=== PATIENT | female | born 1930 | race Caucasian/White ===

== ENCOUNTER 2017-04-28 14:42 | Emergency (ER) | payer OTHER ==
[~2017-04-28] VITALS: Ht 152.4 cm; Wt 56.7 kg
[~2017-04-28 14:42] MED LIST: BENA10TA4 PO; BENA20TA PO; GLIM2TAB PO; METO25TE PO; OMEP20EC4 PO; RAME8TAB16 PO
[2017-04-28 14:54] VITALS: BP 167/82
[2017-04-28] MEDS ORDERED: ONDANSETRON 4 MG/2 ML VIAL IVP ONE (15:05)
[2017-04-28] MEDS ORDERED: MORPHINE SULFATE 4 MG/ML SYR IVP ONE (15:05)
[2017-04-28] MEDS ORDERED: NACL 0.9% 1,000 ML IV ONE (15:05)
--- NOTE | 2017-04-28 15:47 | NUR ---
blood and urine collected and handed to lab
[2017-04-28 16:06] LABS: ANION GAP 12.7 (8-16); BASOPHILS # (AUTO) 0.2 K/uL (0.00-0.22); CARBON DIOXIDE 28.1 mmol/L (21-32); CHLORIDE 101 mmol/L (98-107); CREATININE 0.8 mg/dL (0.6-1.3); EOSINOPHILS # (AUTO) 0.1 K/uL (0-0.4); GLUCOSE 202 mg/dL (74-106); HEMATOCRIT 39.8 % (36-48); HEMOGLOBIN 13.5 g/dL (12.0-16.0); LYMPHOCYTES # (AUTO) 1.2 K/uL (2.5-16.5); MEAN CORPUSCULAR HEMOGLOBIN 30 pg (27-31); MEAN CORPUSCULAR HGB CONC 34 g/dL (33-37); MEAN CORPUSCULAR VOLUME 89 fL (80-94); MONOCYTES # (AUTO) 0.4 K/uL (0.8-1.0); NEUTROPHILS # (AUTO) 2.7 K/uL (1.8-7.7); PLATELET COUNT (AUTO) 169 K/uL (140-450); POTASSIUM 3.8 mmol/L (3.5-5.1); RED BLOOD CELL COUNT(AUTO) 4.47 MIL/uL (4.20-5.40); RED CELL DISTRIBUTION WIDTH 12.2 % (11.6-13.7); SODIUM SERUM 138 mmol/L (136-145); UREA NITROGEN, BLOOD 15 mg/dL (7-18); WHITE BLOOD COUNT (AUTO) 4.6 K/uL (4.8-10.8)
[2017-04-28 16:13] LABS: ALBUMIN 3.8 g/dL (3.4-5.0); ASPARTATE AMINOTRANSFERASE 12 U/L (15-37); LIPASE 104 U/L (73-393); TOTAL BILIRUBIN 0.5 mg/dL (0.0-1.0)
[2017-04-28 16:15] LABS: BILIRUBIN,URINE NEGATIVE (NEGATIVE); BLOOD, URINE NEGATIVE (NEGATIVE); LEUKOCYTE ESTERASE ,URINE 1+ (NEGATIVE); NITRITE, URINE NEGATIVE (NEGATIVE); PH,URINE 5.5 (5.0-9.0); UGLUCOSE NEGATIVE (NEGATIVE)
--- NOTE | 2017-04-28 16:17 | NUR ---
pt admits no pain or nausea at this time---ambulatory to restroom with daughter
[2017-04-28 16:18] LABS: APPEARANCE,URINE HAZY (CLEAR); COLOR,URINE STRAW (YELLOW)
[2017-04-28 16:25] LABS: RBC,URINE NONE SEEN /HPF (0-5)
--- NOTE | 2017-04-28 17:24 | NUR ---
ATE 100% MEAL--CONTINUES TO DENIE N/V OR PAIN
[2017-04-28 17:36] VITALS: BP 155/70
--- NOTE | 2017-04-28 17:36 | NUR ---
Patient discharged with v/s stable. Written and verbal after care instructions given and explained. Patient alert, oriented and verbalized understanding of instructions. Ambulatory with steady gait. All questions addressed prior to discharge. ID band removed. Patient advised to follow up with PMD. Rx of MAALOX/ MACROBID given. Patient educated on indication of medication including possible reaction and side effects. Opportunity to ask questions provided and answered.
== END 2017-04-28 17:36 | disposition home or self-care (01) ==
LOC: MED 14:42
DX: N39.0 Urinary tract infection, site not specified (principal); E11.9 Type 2 diabetes mellitus without complications; I10 Essential (primary) hypertension; Z90.49 Acquired absence of other specified parts of digestive tract; Z88.0 Allergy status to penicillin
CPT/HCPCS: 36415; 74176; 80053; 81001; 82948; 83690; 83880; 84484; 85025; 87086; 87186; 93005; 96361; 96374; 96375; 99285; J2270; J2405; J7030

== ENCOUNTER 2021-08-21 09:48 | Emergency (ER) | payer OTHER ==
[~2021-08-21] VITALS: Ht 162.6 cm; Wt 59.0 kg
[~2021-08-21 09:48] MED LIST changes: -BENA10TA4 PO; +BENA10TA59 PO; +OMEP20EC11 PO; -OMEP20EC4 PO
[2021-08-21 09:55] VITALS: BP 134/78
[2021-08-21] MEDS ORDERED: KETOROLAC 60 MG/2 ML VIAL IM ONE (10:05)
--- NOTE | 2021-08-21 10:16 | NUR ---
PATIENT W/C ASSISTED TO BED 4.
--- NOTE | 2021-08-21 10:18 | NUR ---
Pt in bed #4 coming from home accompanied by daughter in law. Pt arrived in wheelchair unable to walk due to c/o left hip pain after falling this morning trying to get out of bed. Pt is A&Ox4. Pt states she normally uses a walker at home but currently states she is unable to ambulate. Rates pain 10/10 and is constant. Skin intact. Bruising noted on left hip. VSS. Bed in lowest position. No chest pain and no sob. Denies n/v. Hx of HTN, DM, Hypothyroidism, GERD, Anxiety, and Dementia. Allergic to Penicillins.
--- NOTE | 2021-08-21 10:37 | NUR ---
Pt to radiology via [facility] accompanied by radiology transcriptionist.
--- NOTE | 2021-08-21 11:08 | NUR ---
Pt return from radiology.
[2021-08-21] MEDS ORDERED: MORPHINE SULFATE 4 MG/ML SYR IVP ONE ×4 (11:25→20:25)
--- NOTE | 2021-08-21 11:34 | NUR ---
#22g IV placed on left hand using aseptic technique. No infiltration noted. Blood return and drawn. Flushed with 10cc NS. Pt has no c/o.
--- NOTE | 2021-08-21 11:37 | NUR ---
Dr. Ayala at bedside examining pt.
--- NOTE | 2021-08-21 11:58 | NUR ---
Personal Belonging List Completed.
--- NOTE | 2021-08-21 11:59 | NUR ---
EKG being done at bedside.
--- NOTE | 2021-08-21 11:59 | NUR ---
Blood and covid swab done and sent to lab.
[2021-08-21 12:23] LABS: ALBUMIN 3.7 g/dL (3.4-5.0); ASPARTATE AMINOTRANSFERASE 16 U/L (15-37); CARBON DIOXIDE 23.7 mmol/L (21-32); CHLORIDE 102 mmol/L (98-107); CREATININE 0.9 mg/dL (0.6-1.3); GLUCOSE 184 mg/dL (74-106); HEMOGLOBIN 12.9 g/dL (12.0-16.0); POTASSIUM 3.7 mmol/L (3.5-5.1); RED CELL DISTRIBUTION WIDTH 13.6 % (11.6-13.7); SODIUM SERUM 138 mmol/L (136-145); TOTAL BILIRUBIN 0.4 mg/dL (0.0-1.0); UREA NITROGEN, BLOOD 19 mg/dL (7-18)
[2021-08-21 12:31] LABS: BASOPHILS % (AUTO) 0.6 % (0.0-2.0); EOSINOPHILS # (AUTO) 0.1 K/uL (0-0.4); EOSINOPHILS % (AUTO) 0.8 % (0.0-4.0); HEMATOCRIT 37.6 % (36-48); LYMPHOCYTES # (AUTO) 0.8 K/uL (2.5-16.5); LYMPHOCYTES % (AUTO) 11.8 % (20.5-51.1); MEAN CORPUSCULAR HEMOGLOBIN 31 pg (27-31); MEAN CORPUSCULAR HGB CONC 34 g/dL (33-37); MEAN CORPUSCULAR VOLUME 89.9 fL (80-94); MONOCYTES # (AUTO) 0.5 K/uL (0.8-1.0); MONOCYTES % (AUTO) 6.9 % (1.7-9.3); NEUTROPHILS # (AUTO) 5.7 K/uL (1.8-7.7); NEUTROPHILS % (AUTO) 79.9 % (42.2-75.2); PLATELET COUNT (AUTO) 161 K/uL (140-450); RED BLOOD CELL COUNT(AUTO) 4.19 MIL/uL (4.20-5.40); WHITE BLOOD COUNT (AUTO) 7.1 K/uL (4.8-10.8)
[2021-08-21] MEDS ORDERED: METF-1139 PO (12:58)
[2021-08-21] MEDS ORDERED: TRAZ-343 PO (12:58)
[2021-08-21] MEDS ORDERED: MELA10TA6 PO (12:58)
[2021-08-21] MEDS ORDERED: CARV3.12 PO (12:58)
[2021-08-21] MEDS ORDERED: ERTU15TA PO (12:58)
[2021-08-21] MEDS ORDERED: SYN.05 PO (12:58)
[2021-08-21] MEDS ORDERED: OMEP-124 PO (12:58)
--- NOTE | 2021-08-21 12:59 | NUR ---
Medication reconciliation completed by information provided by pt.
--- NOTE | 2021-08-21 13:33 | NUR ---
#16F Plaza cath placed using sterile technique. Pt has no c/o.
--- NOTE | 2021-08-21 14:47 | NUR ---
Bakari reece in [facility] - 08/21/21 at 1451 by [email or web address] Chest X-Ray being done at bedside.
--- NOTE | 2021-08-21 17:38 | NUR ---
Pt c/o pain returning and rates it 8/[address] Lea notified.
--- NOTE | 2021-08-21 20:05 | NUR ---
SPOKE WITH DEVELOPMENT TEAM LEAD WHO WILL ARRANGE TRANSPORTATION FOR TRANSFER. PT IS RESTING COMFORTABLY, DENIES NEED FOR PAIN MEDICATION AT THIS TIME
[2021-08-21] MEDS ORDERED: MORPHINE SULFATE 4 MG/ML SYR ONE (20:28)
[2021-08-21 21:00] VITALS: BP 144/83
--- NOTE | 2021-08-21 21:45 | NUR ---
AMBULANCE TRANSPORT AT BEDSIDE
--- NOTE | 2021-08-21 21:50 | NUR ---
report called to VIKA Peng at [facility]
--- NOTE | 2021-08-21 22:00 | NUR ---
[facility] FOR TRANSPORT/ TRANSFER TO [facility]
--- NOTE | 2021-08-21 22:11 | NUR ---
PT TAKEN BY AMBULANCE TRANSPORT
--- NOTE | 2021-08-21 22:11 | NUR ---
TRANSFERED VIA [facility]. CHART COPIED AND SENT. CD IN PACKET
== END 2021-08-21 22:11 | disposition short-term general hospital (02) ==
LOC: MED 09:48
DX: S72.142A Displaced intertrochanteric fracture of left femur, initial encounter for closed fracture (principal); F03.90 Unspecified dementia, unspecified severity, without behavioral disturbance, psychotic disturbance, mood disturbance, and anxiety; K21.9 Gastro-esophageal reflux disease without esophagitis; I10 Essential (primary) hypertension; E07.9 Disorder of thyroid, unspecified; Z79.84 Long term (current) use of oral hypoglycemic drugs; Z88.0 Allergy status to penicillin; Z79.899 Other long term (current) drug therapy; Z90.49 Acquired absence of other specified parts of digestive tract; Z98.890 Other specified postprocedural states; W19.XXXA Unspecified fall, initial encounter; Y93.89 Activity, other specified; Y92.89 Other specified places as the place of occurrence of the external cause; Y99.8 Other external cause status
CPT/HCPCS: 36415; 71045; 73502; 80053; 83880; 84484; 85025; 87426; 93005; 96372; 96374; 96376; 99285; J1885; J2270; Q0092